=== PATIENT | male | born 1950 | race Caucasian/White ===

== ENCOUNTER 2023-09-10 16:03 | Emergency (ER) | payer OTHER ==
[~2023-09-10] VITALS: Ht 185.4 cm; Wt 72.6 kg
== END 2023-09-10 18:00 | disposition home or self-care (01) ==
LOC: ER 16:03
DX: S00.01XA Abrasion of scalp, initial encounter (principal); S39.92XA Unspecified injury of lower back, initial encounter; M47.812 Spondylosis without myelopathy or radiculopathy, cervical region; I50.9 Heart failure, unspecified; I25.2 Old myocardial infarction; W01.0XXA Fall on same level from slipping, tripping and stumbling without subsequent striking against object, initial encounter; Y92.009 Unspecified place in unspecified non-institutional (private) residence as the place of occurrence of the external cause; Z86.73 Personal history of transient ischemic attack (TIA), and cerebral infarction without residual deficits; Z79.899 Other long term (current) drug therapy; Z79.82 Long term (current) use of aspirin
CPT/HCPCS: 70450; 72100; 72125; 99285-25